=== PATIENT | female | born 1995 | race Two or more races ===

== ENCOUNTER 2024-10-11 05:35 | Inpatient (IN) | payer OTHER ==
[2024-10-11] MEDS: ELECTROLYTE-148 SOLN 500 ML IV SCH (06:00)
[2024-10-11 06:18] VITALS: BMI 33.5
[2024-10-11 06:26] LABS: ABSOLUTE IMMATURE GRANULOCYTES 0.05 x10^3/uL (0.0-0.031); BASOPHILS # 0.02 x10^3/uL (0.01-0.08); EOSINOPHIL % 0.8 % (0.7-5.8); EOSINOPHILS # 0.06 x10^3/uL (0.04-0.36); HEMATOCRIT 43.4 % (34.1-44.9); HEMOGLOBIN 14.6 g/dL (11.2-15.7); MCHC 33.6 g/dl (32.2-35.5); MEAN CELL VOLUME 84.9 fl (79.4-94.8); MEAN PLT VOLUME 10.5 fl (9.4-12.3); MONOCYTE % 8.8 % (4.7-12.5); PLATELET COUNT 248 x10^3/uL (182-369)
[2024-10-11 06:28] LABS: INR 0.9 (0.83-1.09); PROTHROMBIN TIME (PATIENT) 9.8 SEC (9.7-13.0)
[2024-10-11 06:31] LABS: ACTIVATED PTT 26.1 SECONDS (25.2-36.5)
[2024-10-11] MEDS: ELECTROLYTE-148 SOLN 1,000 ML IV SCH (06:34)
[2024-10-11 06:47] LABS: POTASSIUM 4.1 mmol/L (3.5-5.1)
[2024-10-11 06:48] LABS: BLOOD UREA NITROGEN 12.4 mg/dL (7-18); CALCIUM 9.8 mg/dL (8.5-10.1)
[2024-10-11 06:52] LABS: CREATININE 0.6 mg/dL (0.55-1.3)
[2024-10-11] MEDS ORDERED: OXYTOCIN 10 UNITS/ML VIAL ONE (07:40)
[2024-10-11] MEDS ORDERED: ceFAZolin SODIUM 1 GM VIAL ONE (07:40)
[2024-10-11] MEDS ORDERED: ONDANSETRON 4 MG/2 ML VIAL ONE (07:40)
[2024-10-11] MEDS ORDERED: METOCLOPRAMIDE HCL INJECTION 10 MG/2 ML VIAL ONE (07:40)
[2024-10-11] MEDS ORDERED: DEXAMETHASONE SOD PHOSPHATE 4 MG/1 ML VIAL ONE (07:40)
[2024-10-11] MEDS ORDERED: KETOROLAC TROMETHAMINE 30 MG/1 ML VIAL ONE (07:40)
[2024-10-11] MEDS: CITRIC ACID/SODIUM CITRATE 30 ML UNIT-DOSE CUP PO ONE (08:00)
[2024-10-11] MEDS ORDERED: morphine SULFATE (PF) 1 MG/2 ML SYRINGE ONE (08:05)
[2024-10-11] MEDS ORDERED: FENTANYL CITRATE/PF 50 MCG/ML VIAL ONE (08:07)
[2024-10-11 09:27] LABS: CORD HCO3 23.6 mmHg (20-29); CORD PCO2 64.2 mmHg (30-78); CORD pH 7.184 (7.14-7.44)
[2024-10-11 09:34] LABS: CORD PCO2 78.2 mmHg (30-78); CORD pH 7.122 (7.14-7.44)
[2024-10-11] MEDS ORDERED: METHYLERGONOVINE MALEATE 0.2 MG/1 ML AMP IM PRN (09:37)
[2024-10-11] MEDS ORDERED: SIMETHICONE 80 MG TAB.CHEW (FP) PO PRN (09:37)
[2024-10-11] MEDS ORDERED: IBUPROFEN 600 MG TABLET (FP) PO SCH (09:45)
[2024-10-11] MEDS ORDERED: OXYTOCIN 20 UNITS in 0.9% NS 20 UNIT/1,000 ML INFUS.BAG IV ONE (09:59)
[2024-10-11] MEDS: OXYTOCIN 20 UNITS in 0.9% NS 20 UNIT/1,000 ML INFUS.BAG IV SCH (10:00)
[2024-10-11] MEDS: IBUPROFEN 600 MG TABLET (FP) PO SCH (10:15)
[2024-10-11] MEDS: PRENATAL VITAMINS W/ FOLIC ACID TABLET (FP) PO SCH (10:22)
[2024-10-11 12:14] LABS: URIC ACID 4.3 mg/dL (2.6-7.2)
[2024-10-11] MEDS ORDERED: oxyCODONE HCL 5 MG TABLET PO PRN (21:37)
[2024-10-12] MEDS: IBUPROFEN 800 MG/8 ML IJ IVPB PRN (00:49)
[2024-10-12 07:16] LABS: ABSOLUTE IMMATURE GRANULOCYTES 0.08 x10^3/uL (0.0-0.031); BASOPHILS # 0.02 x10^3/uL (0.01-0.08); EOSINOPHIL % 0.3 % (0.7-5.8); EOSINOPHILS # 0.04 x10^3/uL (0.04-0.36); HEMATOCRIT 36.6 % (34.1-44.9); HEMOGLOBIN 12.3 g/dL (11.2-15.7); MCHC 33.6 g/dl (32.2-35.5); MEAN CELL VOLUME 86.1 fl (79.4-94.8); MEAN PLT VOLUME 10.1 fl (9.4-12.3); MONOCYTE # 1.18 x10^3/uL (0.24-0.86); MONOCYTE % 8.8 % (4.7-12.5); PLATELET COUNT 205 x10^3/uL (182-369); RDW 12.9 % (12.1-16.5)
[2024-10-12] MEDS ORDERED: BISACODYL 10 MG SUPP.RECT RC PRN (09:37)
[2024-10-12] MEDS: IBUPROFEN 600 MG TABLET (FP) PO SCH (17:33)
[2024-10-13] MEDS: IBUPROFEN 600 MG TABLET (FP) PO SCH ×2 (09:15→16:00)
[2024-10-13 22:18] VITALS: RESP 18
[2024-10-14] MEDS: ACETAMINOPHEN 325 MG TABLET (FP) PO PRN (00:03)
[2024-10-14 08:23] LABS: ABSOLUTE IMMATURE GRANULOCYTES 0.06 x10^3/uL (0.0-0.031); BASOPHILS # 0.02 x10^3/uL (0.01-0.08); EOSINOPHIL % 1.5 % (0.7-5.8); EOSINOPHILS # 0.12 x10^3/uL (0.04-0.36); HEMATOCRIT 37.3 % (34.1-44.9); HEMOGLOBIN 12.3 g/dL (11.2-15.7); MEAN CELL VOLUME 87.1 fl (79.4-94.8); MONOCYTE # 0.64 x10^3/uL (0.24-0.86); MONOCYTE % 7.8 % (4.7-12.5); PLATELET COUNT 224 x10^3/uL (182-369); RDW 13.2 % (12.1-16.5)
[2024-10-14 11:01] VITALS: BP 136/80; PULSE 81; TEMP 98.4
== END 2024-10-14 13:30 | disposition home or self-care (01) | DRG 788 ==
LOC: JLDR 05:35 → J3W 12:12
PROVIDERS: ADMIT Obstetrics & Gynecology; ATTEND Obstetrics & Gynecology
PROC: 10D00Z1 Extraction of Products of Conception, Low, Open Approach (ICD-10-PCS; principal; 2024-10-11)
DX: O32.1XX0 Maternal care for breech presentation, not applicable or unspecified (principal); O13.4 Gestational [pregnancy-induced] hypertension without significant proteinuria, complicating childbirth; O36.5930 Maternal care for other known or suspected poor fetal growth, third trimester, not applicable or unspecified; Z3A.37 37 weeks gestation of pregnancy; Z37.0 Single live birth
CPT/HCPCS: 36415; 36600; 80048; 82570; 82803; 84156; 84450; 84460; 84550; 85025; 85610; 85730; 86780; 86850; 86900; 86901; 88307-TC